=== PATIENT | female | born 1955 | race Caucasian/White ===

== ENCOUNTER → 2021-11-29 | Outpatient (CLI) | payer MEDICARE ==
[~2021-11-29] MED LIST: CALCIUM + VITA1 EACH PO; GLUCOSAMINE &1 EACH PO; HYDROCHLOROTHIA25 MG PO; OMEGA 3 1,0001 EACH PO
[2021-11-29 14:32] LABS: RED BLOOD COUNT 5.02 M/UL (4.00-5.10); WHITE BLOOD COUNT 7.7 K/UL (4.5-11.0)
== END ==
LOC: OPSV2 12:30
PROVIDERS: Orthopaedic Surgery
DX: Z01.812 Encounter for preprocedural laboratory examination (principal); M71.38 Other bursal cyst, other site
CPT/HCPCS: 36415; 80048; 85027

== ENCOUNTER → 2021-12-06 | Day surgery (SDC) | payer MEDICARE | END | disposition home or self-care (01) | LOC: OR 06:04 | DX: M71.342 Other bursal cyst, left hand (principal) | CPT/HCPCS: J0690; J1100; J1885; J2001; J2370; J2405; J2704; J3010 ==